=== PATIENT | male | born 1950 | race Caucasian/White ===

== ENCOUNTER 2022-01-18 03:34 | Emergency (ER) | payer MEDICARE, OTHER | END 2022-01-18 04:15 | disposition home or self-care (01) | LOC: JD.ED 03:34 | DX: Z53.21 Procedure and treatment not carried out due to patient leaving prior to being seen by health care provider (principal) ==

== ENCOUNTER 2022-04-24 04:08 | Emergency (ER) | payer MEDICARE, OTHER | END 2022-04-24 05:50 | disposition home or self-care (01) | LOC: JD.ED 04:08 | DX: T83.098A Other mechanical complication of other urinary catheter, initial encounter (principal) | CPT/HCPCS: 51702; 99282; 99283-25 ==